=== PATIENT | female | born 1975 | race Caucasian/White ===

== ENCOUNTER 2018-02-10 23:05 | Emergency (ER) | payer SELFPAY ==
--- NOTE | 2018-02-11 00:09 | EDPHYS ---
Physician Documentation [facility] Name: Kimmy Can Age: 42 yrs Sex: Female : 1975 Arrival Date: 02/10/2018 Time: 23:10 Bed 17 Private MD: Brigida Rosas R ED Physician Lucio Forbes HPI: 02/11 01:00 This 42 yrs old Female presents to ER via Ambulatory with complaints of Left pm1 Ear Pain. 01:00 The patient presents with pain, that is acute, swelling. The complaints affect the left pm1 ear. Onset: The symptoms/episode began/occurred yesterday. Modifying factors: The symptoms are alleviated by nothing, the symptoms are aggravated by touching. Associated signs and symptoms: Pertinent negatives: fever. Severity of symptoms: in the emergency department the symptoms are worse. The patient has not experienced similar symptoms in the past. The patient has not recently seen a physician. Patient reports pimple present to left ear just outside the ear canal. Her co-worker attempted to may it yesterday. Today patient reports pain is worse. 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 - Social history:: Smoking status: Patient uses tobacco products, smokes one-half pack cigarettes per day. - Ebola Screening: : No symptoms or risks identified at this time. ROS: 02/11 01:00 Constitutional: Negative for fever, chills, and weight loss, Eyes: Negative for injury, pm1 pain, redness, and discharge. Neck: Negative for injury, pain, and swelling, Cardiovascular: Negative for chest pain, palpitations, and edema, Respiratory: Negative for shortness of breath, cough, wheezing, and pleuritic chest pain, Abdomen/GI: Negative for abdominal pain, nausea, vomiting, diarrhea, and constipation, Back: Negative for injury and pain, : Negative for injury, bleeding, discharge, and swelling, MS/Extremity: Negative for injury and deformity, Skin: Negative for injury, rash, and discoloration, Neuro: Negative for headache, weakness, numbness, tingling, and seizure. ENT: Positive for ear pain, Negative for drainage from ear(s), hearing loss, sore throat. Exam: 01:00 Constitutional: This is a well developed, well nourished patient who is awake, alert, pm1 and in no acute distress. Head/Face: Normocephalic, atraumatic. Eyes: Pupils equal round and reactive to light, extra-ocular motions intact. Lids and lashes normal. Conjunctiva and sclera are non-icteric and not injected. Cornea within normal limits. Periorbital areas with no swelling, redness, or edema. 01:00 Neck: Trachea midline, no thyromegaly or masses palpated, and no cervical lymphadenopathy. Supple, full range of motion without nuchal rigidity, or vertebral point tenderness. No Meningismus. Chest/axilla: Normal chest wall appearance and motion. Nontender with no deformity. No lesions are appreciated. Cardiovascular: Regular rate and rhythm with a normal S1 and S2. No gallops, murmurs, or rubs. Normal PMI, no JVD. No pulse deficits. Respiratory: Lungs have equal breath sounds bilaterally, clear to auscultation and percussion. No rales, rhonchi or wheezes noted. No increased work of breathing, no retractions or nasal flaring. Abdomen/GI: Soft, non-tender, with normal bowel sounds. No distension or tympany. No guarding or rebound. No evidence of tenderness throughout. Skin: Warm, dry with normal turgor. Normal color with no rashes, no lesions, MS/ Extremity: Pulses equal, no cyanosis. Neurovascular intact. Full, normal range of motion. 01:00 ENT: External ear(s): cellulitis, of the pinna of left ear, Ear canal(s): are normal, TM's: are normal, Examination of the other ear shows no obvious abnormality. 01:00 Neuro: Orientation: is normal, Gait: is steady, at a normal pace, without difficulty. Vital Signs: 02/10 23:18 BP 162 / 108; Pulse 89; Resp 18; Temp 98.5(O); Pulse Ox 98% on R/A; Weight 86.18 kg ak1 (R); Height 5 ft. (152.40 cm) (R); Pain 10/10; 23:53 BP 143 / 77; Pulse 75; Resp 18; Pulse Ox 97% ; Pain 10/10; ao 23:18 Body Mass Index 37.11 (86.18 kg, 152.40 cm) ak1 MDM: 23:22 Patient medically screened. pm1 02/11 00:04 Data reviewed: vital signs. Data interpreted: Pulse oximetry: on room air is 97 %. pm1 Interpretation: normal. Counseling: I had a detailed discussion with the patient and/or guardian regarding: the historical points, exam findings, and any diagnostic results supporting the discharge/admit diagnosis, the need for outpatient follow up, for definitive care, an ENT specialist, to return to the emergency department if symptoms worsen or persist or if there are any questions or concerns that arise at home. Administered Medications: 00:49 Drug: [place] 10 mg-325 mg 1 tabs Route: PO; ao 00:49 Follow up: Response: Medication administered at discharge. ao Disposition: 00:56 Co-signature as Attending Physician, Lucio Forbes MD I agree with the assessment and kdr plan of care. Disposition: 02/11/18 00:09 Discharged to Home. Impression: Cellulitis of left external ear. - Condition is Stable. - Discharge Instructions: Cellulitis. - Prescriptions for Bactrim DS 800- 160 mg Oral Tablet - take 1 tablet by ORAL route every 12 hours for 10 days; 20 tablet. Tylenol- Codeine #3 300-30 mg Oral Tablet - take 2 tablets by ORAL route every 6 hours As needed; 20 tablet. - Work release form, Medication Reconciliation Form, Thank You Letter, Antibiotic Education, Prescription Opioid Use form. - Follow up: Emergency Department; When: As needed; Reason: Worsening of condition. Follow up: Kenisha Roca MD; When: 2 - 3 days; Reason: Recheck today's complaints, Continuance of care, Re-evaluation by your physician. - Problem is new. - Symptoms have improved. Signatures: Lucio Forbes MD MD [facility] Maeve Shin RN RN ak1 Alexander Robins RN RN ao Tray Craig, HAND PACKER/PACKAGER HAND PACKER/PACKAGER pm1 Corrections: (The following items were deleted from the chart) 00:51 00:09 02/11/2018 00:09 Discharged to Home. Impression: Cellulitis of left external ear. ao Condition is Stable. Forms are Medication Reconciliation Form, Thank You Letter, Antibiotic Education, Prescription Opioid Use. Follow up: Emergency Department; When: As needed; Reason: Worsening of condition. Follow up: Kenisha Roca; When: 2 - 3 days; Reason: Recheck today's complaints, Continuance of care, Re-evaluation by your physician. Problem is new. Symptoms have improved. pm1
--- NOTE | 2018-02-11 00:09 | ER ---
Nurse's Notes [facility] Name: Kimmy Can Age: 42 yrs Sex: Female : 1975 Arrival Date: 02/10/2018 Time: 23:10 Bed 17 Private MD: Birgida Rosas R Diagnosis: Cellulitis of left external ear Presentation: 02/10 23:18 Presenting complaint: Patient states: left ear pain since Saturday. pt c/o increased ak1 pain, swelling and redness. Transition of care: patient was not received from another setting of care. Onset of symptoms is unknown. Risk Assessment: Do you want to hurt yourself or someone else? Patient reports no desire to harm self or others. Initial Sepsis Screen: Does the patient meet any 2 criteria? No. Patient's initial sepsis screen is negative. Does the patient have a suspected source of infection? No. Patient's initial sepsis screen is negative. Care prior to arrival: None. 23:18 Method Of Arrival: Ambulatory ak1 23:18 Acuity: APOLINAR 4 ak1 Triage Assessment: 23:19 General: Appears in no apparent distress. Behavior is calm, cooperative. Pain: ak1 Complains of pain in left ear. Neuro: No deficits noted. Cardiovascular: No deficits noted. Respiratory: No deficits noted. GI: No signs and/or symptoms were reported involving the gastrointestinal system. : No signs and/or symptoms were reported regarding the genitourinary system. Derm: No signs and/or symptoms reported regarding the dermatologic system. Musculoskeletal: No signs and/or symptoms reported regarding the musculoskeletal system. 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 - Social history:: Smoking status: Patient uses tobacco products, smokes one-half pack cigarettes per day. - Ebola Screening: : No symptoms or risks identified at this time. Screenin:20 Abuse screen: Denies threats or abuse. Denies injuries from another. Nutritional ak1 screening: No deficits noted. Tuberculosis screening: No symptoms or risk factors identified. Fall Risk None identified. Assessment: 23:51 General: Appears in no apparent distress. uncomfortable, Behavior is cooperative, ao anxious. Pain: Complains of pain in left ear Pain does not radiate. Pain currently is 10 out of 10 on a pain scale. Neuro: Level of Consciousness is awake, alert, obeys commands, Oriented to person, place, time, situation, Appropriate for age Moves all extremities. Speech is normal, Facial symmetry appears normal, Pupils are PERRLA. Cardiovascular: Capillary refill < 3 seconds Patient's skin is warm and dry. Respiratory: Airway is patent Respiratory effort is even, unlabored, Respiratory pattern is regular, symmetrical. GI: Abdomen is flat. : No signs and/or symptoms were reported regarding the genitourinary system. EENT: Tympanic membrane reddened on left ear. EENT: Reports pain in left ear Pain is 10 out of 10 on a pain scale. Derm: Skin is intact, Skin is normal, Skin temperature is warm. Musculoskeletal: Circulation, motion, and sensation intact. Range of motion:. Vital Signs: 23:18 BP 162 / 108; Pulse 89; Resp 18; Temp 98.5(O); Pulse Ox 98% on R/A; Weight 86.18 kg ak1 (R); Height 5 ft. (152.40 cm) (R); Pain 10/10; 23:53 BP 143 / 77; Pulse 75; Resp 18; Pulse Ox 97% ; Pain 10/10; ao 23:18 Body Mass Index 37.11 (86.18 kg, 152.40 cm) ak1 ED Course: 23:10 Patient arrived in ED. es 23:10 Brigida Rosas MD is Private Physician. es 23:19 Triage completed. ak1 23:19 Arm band placed on Patient placed in an exam room, on a stretcher, Patient notified of ak1 wait time. 23:20 Patient has correct armband on for positive identification. Bed in low position. Call ak1 light in reach. Side rails up X 1. 23:22 Tray Craig NP is PHCP. pm1 23:22 Lucio Forbes MD is Attending Physician. pm1 23:49 Alexander Robins RN is Primary Nurse. ao 02/11 00:07 Kenisha Roca MD is Referral Physician. pm1 00:49 No provider procedures requiring assistance completed. Patient did not have IV access ao during this emergency room visit. Administered Medications: 00:49 Drug: [place] 10 mg-325 mg 1 tabs Route: PO; ao 00:49 Follow up: Response: Medication administered at discharge. ao Outcome: 00:09 Discharge ordered by . pm1 00:50 Discharged to home ambulatory. ao 00:50 Condition: stable 00:50 Discharge instructions given to patient, Instructed on discharge instructions, follow up and referral plans. Demonstrated understanding of instructions, follow-up care, medications, Prescriptions given X 2. 00:51 Patient left the ED. ao Signatures: Zoe Cornejo Amber RN RN ak1 Alexander Robins RN RN ao Tray Craig, ILYA WELDING MACHINE OPERATOR ELECTRON BEAM pm1
[2018-02-11] MEDS ORDERED: HYDROCODONE/APAP 10/325 TAB ONE (00:23)
== END 2018-02-11 00:51 | disposition home or self-care (01) ==
LOC: ER 23:05
DX: H60.12 Cellulitis of left external ear (principal); F17.210 Nicotine dependence, cigarettes, uncomplicated; F31.9 Bipolar disorder, unspecified
CPT/HCPCS: 99283